=== PATIENT | female | born 1960 | race Caucasian/White ===

== ENCOUNTER → 2020-08-01 16:34 | Outpatient (CLI) | payer BC, SELFPAY ==
--- NOTE | 2020-08-01 16:38 | CT_ITS ---
STUDY: CT ABDOMEN AND PELVIS WITHOUT CONTRAST REASON FOR EXAM: Female, 59 years old. LT FLANK PAIN STARTED TUESDAY. HAS SINCE RESOLVED. H/O KS REQUIRING LITHOTRIPSY RADIATION DOSAGE (If Supplied By Facility): CTDIvol = ( 6.22 ) mGy, DLP = ( 274.15 ) mGycm TECHNIQUE: Transaxial images were obtained from the dome of the diaphragm to the symphysis pubis without oral contrast, and without intravenous contrast. Sagittal and coronal images were reconstructed. Individualized dose optimization techniques were used for this CT. COMPARISON: None. FINDINGS: Mild nonspecific interstitial thickening in both lower lobes.. The visualized portions of the heart are within normal limits. There is mild elongation of the right lobe of the liver. The liver is homogeneous attenuation. There is a tiny cyst in the right lobe. Bile ducts are not dilated. Small calcified stone in the gallbladder without evidence for acute inflammation. Normal spleen. Normal pancreas. Normal bilateral adrenal glands. Normal right kidney. Normal left kidney. Normal visualized stomach. Normal small intestine. Mild diverticular changes in the descending and sigmoid colon without evidence for acute diverticulitis. No evidence for acute appendicitis Atherosclerotic changes of the aorta without evidence for aneurysm.. Normal inferior vena cava. Normal retroperitoneum. Incompletely distended thick-walled bladder likely of no significance Postop change status post bilateral tubal ligation Normal abdominal wall. Lumbar spine demonstrates degenerative change Right hip prosthesis is noted CT/Abdomen/Pelvis without Cont IMPRESSION: No acute abnormalities. No evidence for hydronephrosis or ureteral calculus Cholelithiasis without evidence for acute cholecystitis Minor diverticular changes of the descending and sigmoid colon without evidence for acute diverticulitis Electronically Signed: Brady Lim MD at 17:18 EST , Service support ,
== END ==
PROVIDERS: PCP Family Medicine; Referring Provider Urology; Visit Provider Urology
DX: R10.9 Unspecified abdominal pain (principal); Z87.442 Personal history of urinary calculi
CPT/HCPCS: 74176

== ENCOUNTER → 2022-01-14 | Outpatient (CLI) | payer BC, SELFPAY ==
--- NOTE | 2022-01-14 08:12 | CT_ITS ---
STUDY: CT MAXILLOFACIAL SINUSES REASON FOR EXAM: Female, 61 years old. SINUSITIS RADIATION DOSAGE (If Supplied By Facility): CTDIvol = ( 33.06 ) mGy, DLP = ( 784.26 ) mGycm TECHNIQUE: The patient was scanned in a multi detector CT scanner. High resolution axial imaging was performed without the administration of intravenous contrast material. Sagittal and coronal images were reconstructed. Individualized dose optimization techniques were used for this CT. COMPARISON: None. FINDINGS: FRONTAL SINUSES: Mucosal thickening in the right frontal sinus consistent with chronic sinusitis. ETHMOIDAL SINUSES: Mucosal thickening in multiple ethmoid air cells consistent with chronic sinusitis. MAXILLARY SINUSES: Mucosal thickening in the left maxillary sinus consistent with chronic sinusitis. SPHENOIDAL SINUSES: Normal aeration, without mucosal inflammatory disease. There is patency of the bilateral maxillary infundibuli with normal uncinate processes, ethmoid bullae, and hiatus semilunaris. Normal bilateral middle turbinates. Normal bilateral inferior turbinates. There is a right sided nasal septal deviation with a right sided nasal septal spur. There is patency of the bilateral nasal airways. The visualized osseous structures are normal. The visualized bilateral orbital contents are normal. CT/Sinus/Facial Bone IMPRESSION: 1. Chronic right frontal, ethmoid, and left maxillary sinusitis. 2. Patent ostiomeatal units bilaterally. 3. Slight deviation of nasal septum to the right with a bony spur projecting between the right middle and inferior turbinates. Electronically Signed: Alexey Del Angel MD at 9:24 EDT ,
== END | disposition home or self-care (01) ==
LOC: CT 08:06
PROVIDERS: PCP Student in an Organized Health Care Education/Training Program; Referring Provider Otolaryngology; Visit Provider Otolaryngology
DX: J32.9 Chronic sinusitis, unspecified (principal)
CPT/HCPCS: 70486

== ENCOUNTER 2024-08-24 08:18 | Day surgery (SDC) | payer BC, SELFPAY ==
[2024-08-24] VITALS (9 sets, daily range): BP systolic 115–132; BP diastolic 62–80; PULSE 72–88; RESP 16–18; TEMP 36.1–36.4; O2SAT 99–100; BMI 18.6
[2024-08-24] MEDS: Lactated Ringers 1,000 ML 15 ML IV (08:44)
--- NOTE | 2024-08-24 08:46 | PRE.ANES_ITS ---
ASA Classification* ASA Classification ASA Classification: 3 Assessment & Plan Anesthesia* Anesthesia Assessment Anesthesia Assessment: Discussed sedation and/or anesthesia options, risks, benefits, and alternatives with patient/parents/legal guardian/POA. Questions invited. The patient/parents/legal guardian/POA seems to understand and agrees to proceed with anesthesia plan. Reviewed the physical assessment, medical history, allergy history and patient home medications list prior to surgery/procedure/anesthetic and documented any changes. Performed airway and anesthesia risk assessments. Anesthesia Type Anesthesia Type: General Anesthesia Focused Assessment* Temperature: 97.0 F Pulse Rate: 72 Blood Pressure: 120/62 Respiratory Rate: 16 Pulse Ox: 100 Airway Assessment Mouth opens: >3 cm Mallampati Score: II Focused Labs Anesthesia Preop lab: CBC CHEMISTRY COAG Pre-Assessment Diagnosis/Proposed Procedure Planned Operative Procedure(s): CYSTO URETERSCOPY WITH LASER LITHOTRIPSY RIGHT URETERAL STENT CHANGE Anesthesia History Anesthesia History - legal word processor: Anesthesia History - legal word processor Hx Hospitalization Yes: 07/2024 KIDNEY STONE 08/21/24 09:20 Any Problems With Anesthesia No 08/21/24 09:20 Cholinesterase deficiency No 08/21/24 09:20 You/Your Family Experience No 08/21/24 09:20 fever (hyperthermia) with Relationship Recent Exposure to Contagious No 08/24/24 08:40 Disease Does patient have nerve No 08/21/24 09:20 stimulator Patient instructed to have device shut off --Does patient have Pacemaker No 08/24/24 08:40 or ICD? When Was Last Pacemaker Check QUESTION #4 FULL TEXT: You/Your Family Experience fever (hyperthermia) with Anesthesia Last Oral Intake Last Oral intake: Last Oral Intake NPO since 00:00 08/24/24 08:40 Meds taken in AM with sips of No 08/24/24 08:40 water? Meds patient instructed to take am of surgery PONV PONV - legal word processor: PONV - legal word processor Female Yes 08/21/24 09:20 HX of Motion Sickness No 08/21/24 09:20 HX of N/V After Surgery No 08/21/24 09:20 Non-Smoker No 08/21/24 09:20 Duration of Surgery greater Yes 08/21/24 09:20 than 60 minutes Number of Risk Factors 2 08/21/24 09:20 PONV Score Moderate Risk 08/21/24 09:20 Height & Weight Height & Weight: Anesthesia: Height & Weight Height 4 ft 11 in 08/24/24 08:40 Weight: 41.73 kg 08/24/24 08:40 Body Mass Index (BMI) 18.6 08/24/24 08:40 Respiratory Assessment Respiratory Assessment - legal word processor: Respiratory Tract Infection Hx - legal word processor Hx Respiratory Tract Infection No 08/21/24 09:20 STOP Sleep Apnea STOP Sleep Apnea - legal word processor: STOP Sleep Apnea - legal word processor Hx Hypertension No 08/21/24 09:20 Hx Sleep Apnea No 08/21/24 09:20 CPAP No 01/22/15 10:30 BIPAP No 01/21/15 10:06 Do you snore loudly (louder Yes 08/21/24 09:20 than talking or can be heard Do you often feel tired/ No 08/21/24 09:20 fatigued/ sleepy during daytime? Has anyone observed you stop No 08/21/24 09:20 breathing during sleep? STOP Results Negative 08/21/24 09:20 QUESTION #5 FULL TEXT : Do you snore loudly (louder than talking or can be heard through closed doors)? Tobacco Use History Tobacco Use History - legal word processor: Tobacco Use History - legal word processor Tobacco Use Smoking Status Current every day smoker 08/21/24 09:20 Hx Tobacco Use Yes 08/21/24 09:20 Years Smoking Packs Smoked per Day Smoking Cessation Date was within the last 15 years Hx Smoking Cessation Date Hx Smoking Cessation Counseling Hematologic Medial History Hematologic Hx - legal word processor: Hematologic Medical Hx - clinical documentation specialist Hx of Blood Transfusion No 08/21/24 09:20 Hx of Transfusion in last 3 No 08/21/24 09:20 Months Date of Last Transfusion (if within last 3 months) Ever experience any problems No 08/21/24 09:20 with transfusion(s)? Specify any problems Hx of Preganancy in last 3 No 08/21/24 09:20 Months Nurse Filling Out Transfusion DSCHRIBER 08/21/24 09:20 & Questions: Date: 08/21/24 08/21/24 09:20 Time: 09:21 08/21/24 09:20 Patient unable to answer at this time (ie. confused, unrespo /Reproduction History /Reproductive History - legal word processor: /Reproductive Hx- legal word processor Hx Now No 08/21/24 09:20 Gestational Age (in weeks): EDC: Hx Hx Para Hx Section SAB No 08/21/24 09:20 Active Medications Active Medications: Current Medications Generic Name Dose Route Start Last Admin Trade Name Freq PRN Reason Stop Dose Admin Cefazolin Sodium 2 gm/ N/A 20 mls @ 400 mls/hr 08/24/24 09:55 IV 08/24/24 09:57 PREOP ONE Lactated Ringer's 1,000 mls @ 15 mls/hr 08/24/24 08:30 08/24/24 08:44 IV 08/29/24 21:49 15 mls/hr .Q48H HANSA Administration Protocol PFSH Medical History Post-menopausal Thyroid disease Rheumatoid arthritis Syncope Hypotension History of diverticulitis Asthma Smoker Hx of transesophageal echocardiography (MINA) for monitoring History of echocardiogram Stroke/cerebrovascular accident Hx of fracture of left hip Home Medications ?Medication ?Instructions ?Recorded ?Last Taken ?Type oxycodone-acetaminophen 5 mg-325 1 tab PO Q4H PRN PRN Pain 01/22/15 08/23/24 History mg tablet phenazopyridine 100 mg tablet 100 mg PO TID ##14 01/22/15 08/23/24 Rx apremilast 30 mg tablet (Otezla) 30 mg PO BID 08/21/24 08/23/24 History atorvastatin 20 mg tablet 20 mg PO DAILY 08/21/24 08/24/24 History methimazole 5 mg tablet 5 mg PO DAILY 08/21/24 08/23/24 History Allergy/AdvReac Type Severity Reaction Status Date / Time codeine AdvReac Nausea Verified 08/24/24 08:32 Surgical History Hx of nasal septoplasty Hx of total hip arthroplasty Hx of cystoscopy Hx of cystoscopy Social History Smoking Status: Current every day smoker tobacco type: cigarettes Review of Systems (Anesthesia) ROS Narrative System reviewed and no additional complaints, except as documented.
[2024-08-24] MEDS: Cefazolin 2 GM in Syringe IV (09:50)
--- NOTE | 2024-08-24 09:53 | DCINST_ITS ---
Discharge Instructions Diet Discharge Diet: No restrictions Activity Discharge Activity: Return to Normal Activity Dressing / Incision Call your doctor if you observe: Fever of 101 or Higher, Inability to urinate and Inability to have a bowel movement Follow Up Care Please Follow Up With: Catherine Kapoor MD When: The office will call to make arrangements. Test Results: Test results from this visit will be discussed in further detail at your follow- up appointment, if applicable. Discharge Plan Admission Attending Provider: Catherine Kapoor Primary Care Provider: LOLY RODRIGUEZ Instructions Print Language: Bangladeshi Discharge Orders/Prescriptions Prescriptions: New cephalexin 500 mg capsule 500 mg PO Q12 3 Days Qty: 6 0RF Continued oxycodone-acetaminophen 1 TABLET tablet 1 tab PO Q4H PRN PRN (Reason: Pain) phenazopyridine 100 MG tablet 100 mg PO TID Qty: 14 0RF Otezla 30 mg tablet 30 mg PO BID atorvastatin 20 mg tablet 20 mg PO DAILY methimazole 5 mg tablet 5 mg PO DAILY Referrals / Follow Up: LOLY RODRIGUEZ CRNP [Primary Care Provider] - Disposition Disposition (needs filled in before D/C Order can be placed): Home, Self Care
--- NOTE | 2024-08-24 09:54 | OP.PCM_ITS ---
Operative Report (Standard) Operative Information Surgery/Procedure Performed: Cystoscopy, right ureteroscopy, right ureteral stent removal Surgeon: Catherine Kapoor Date of Procedure: 08/24/24 Procedure Start Time: 10:01 Procedure Stop Time: 10:10 Pre-Operative Diagnosis: Right distal ureteral calculus Post-Operative Diagnosis: Same Select all DRAINS/GRAFTS/IMPLANTS that apply: None Type of Anesthesia: General Estimated Blood Loss: <5cc Specimen collected: No Description of surgery: The patient is a 63-year-old female who had a cystoscopy and right ureteral stent [facility] She now presents for intervention for the stone. Informed consent was obtained. She was taken to the operating room and placed on the operating room table. Anesthesia monitored the head, neck, airway, IV access and vital signs throughout the case. Once anesthesia is appropriate ministered, she was placed into dorsolithotomy position and was prepped and draped in usual sterile fashion. The cystoscope was then inserted through the urethra under direct visualization into the urinary bladder. The right ureteral stent was observed and grasped with a grasping forcep and brought through the urethral meatus where it was backloaded with a 0.035 Glidewire. This was seen in the renal pelvis on fluoroscopy. A semirigid ureteroscope was then gently passed through the urethra and into the distal right ureter. As the ureteroscope approached the ureteral orifice, a 3 mm stone was seen exiting from the ureteral orifice into the bladder lumen. The ureteroscope was passed through the orifice and extended up to the proximal ureter no further stones were identified. There was no tumor, or other abnormality identified. There was no injury to the right ureter. The decision was made to leave the patient without a an indwelling stent. Surgical Findings: 3 mm stone passed with removal of the ureteral stent Director [employer] technical support technician: No Complications Complications: No Admit VTE Documentation VTE Present on Admission: Yes VTE Mechan Device Prophylaxis: SCD's VTE Pharm Prophylaxis ordered?: No Reason prophylaxis not ordered: Treatment Not Indicated
--- NOTE | 2024-08-24 10:25 | PCM.POST.ANE ---
Anesthesia: Postop Eval I Current Vital Signs Temperature: 97.2 F Pulse Rate: 79 Blood Pressure: 117/76 Respiratory Rate: 16 Pulse Ox: 99 Oxygen Delivery Method: Room Air Assessment Airway patent: Yes Spontaneous unlabored respirations: Yes Mental status: Awake and Calm nausea: No Vomiting: No Anesthesia Complication: No Fluid Hydration Crystalloid volume administer (ml): 700 Total IV fluid infused: 700 Progress Note Anesthesia document: Postop Eval 1 completed: Yes
--- NOTE | 2024-08-24 11:02 | POSTOPAN2_ITS ---
Anesthesia Postop Eval I Sum Postop Eval Completion status Anesthesia document: Postop Eval 1 completed: Yes Anesthesia Postop Eval I Summary Anesthesia Postop Eval I Summary: Anesthesia Postop Eval I: Assessment Summary Airway patent Yes 08/24/24 10:26 METAL BUILDING [email or web address] Spontaneous unlabored Yes 08/24/24 10:26 METAL BUILDING [email or web address].MDOT respirations Mental status Awake,Calm 08/24/24 10:26 METAL BUILDING [email or web address].MDOT nausea No 08/24/24 10:26 METAL BUILDING [email or web address].MDOT Vomiting No 08/24/24 10:26 METAL BUILDING [email or web address].[email or web address] Anesthesia Postop Eval I: Fluid Summary Crystalloid volume administer 700 08/24/24 10:26 METAL BUILDING ASSEMBLER.MDOT (ml) Colloids volume administered ( ml) Blood Product volume administered (ml) Total IV fluid infused 700 08/24/24 10:26 METAL BUILDING [email or web address].MDOT Anesthesia Postop Eval I: Summary Notes Anesthesia Complication No 08/24/24 10:26 METAL BUILDING [email or web address].MDOT Anesthesia Complication Comment: Post-operative progress note Anesthesia: Postop Eval II Evaluation Mental status: Awake Pain Level: 0 nausea: No Vomiting: No
--- NOTE | 2024-08-24 11:02 | PCM.POSTANE2 ---
Anesthesia Postop Eval I Sum Postop Eval Completion status Anesthesia document: Postop Eval 1 completed: Yes Anesthesia Postop Eval I Summary Anesthesia Postop Eval I Summary: Anesthesia Postop Eval I: Assessment Summary Airway patent Yes 08/24/24 10:26 PREMIX OPERATOR [email or web address].MDOT Spontaneous unlabored Yes 08/24/24 10:26 PREMIX OPERATOR [email or web address].MDOT respirations Mental status Awake,Calm 08/24/24 10:26 PREMIX OPERATOR CONCENTRATE.MDOT nausea No 08/24/24 10:26 PREMIX OPERATOR CONCENTRATE.MDOT Vomiting No 08/24/24 10:26 PREMIX OPERATOR [email or web address].MDOT Anesthesia Postop Eval I: Fluid Summary Crystalloid volume administer 700 08/24/24 10:26 PREMIX OPERATOR CONCENTRATE.MDOT (ml) Colloids volume administered ( ml) Blood Product volume administered (ml) Total IV fluid infused 700 08/24/24 10:26 PREMIX OPERATOR [email or web address].MDOT Anesthesia Postop Eval I: Summary Notes Anesthesia Complication No 08/24/24 10:26 PREMIX OPERATOR [email or web address].MDOT Anesthesia Complication Comment: Post-operative progress note Anesthesia: Postop Eval II Evaluation Mental status: Awake Pain Level: 0 nausea: No Vomiting: No
== END 2024-08-24 11:19 | disposition home or self-care (01) ==
LOC: SDC 08:19 → AC 08:20
PROVIDERS: PCP Nurse Practitioner Adult Health; Referring Provider Urology; Visit Provider Urology
PROC: 0TJ98ZZ Inspection of Ureter, Via Natural or Artificial Opening Endoscopic (ICD-10-PCS; CPT 52352; principal; 2024-08-24 09:45)
DX: N20.1 Calculus of ureter (principal); Z79.899 Other long term (current) drug therapy; Z86.73 Personal history of transient ischemic attack (TIA), and cerebral infarction without residual deficits; Z87.891 Personal history of nicotine dependence
CPT/HCPCS: 52310; 00910; 76000; J2405